=== PATIENT | female | born 1995 | race Hispanic/Latino ===

== ENCOUNTER 2017-05-04 01:38 | Emergency (ER) | payer OTHER ==
[2017-05-04 02:25] VITALS: BP 135/54; PULSE 86; RESP 18; TEMP 98; O2SAT 100
--- NOTE | 2017-05-04 02:51 | ED PDOC ---
Lower Extremity Pain/Injury Time Seen by Provider: 05/04/17 02:21 Chief Complaint (Nursing): Lower Extremity Problem/Injury Chief Complaint (Provider): Lower Extremity Problem/Injury History Per: Patient History/Exam Limitations: no limitations Onset/Duration Of Symptoms: Days (x1) Current Symptoms Are (Timing): Still Present Additional Complaint(s): 21 year old female who presents to the emergency department with a complaint of left foot, 2nd digit pain associated with swelling status post stubbing toe against rock in [place] earlier today. Patient stated [place] after hitting toe. PMD: none provided Past Medical History Reviewed: Historical Data, Nursing Documentation, Vital Signs Vital Signs: Last Vital Signs Temp 98.0 F 05/04/17 02:00 Pulse 86 05/04/17 02:00 Resp 18 05/04/17 02:00 BP 135/54 L 05/04/17 02:00 Pulse Ox 100 05/04/17 02:00 - Family History Family History: States: Unknown Family Hx - Home Medications Home Medications: Ambulatory Orders Medication Instructions Recorded Cephalexin [cephalexin] 500 mg PO QID #7 cap 05/04/17 - Allergies Allergies/Adverse Reactions: Allergies Allergy/AdvReac Type Severity Reaction Status Date / Time No Known Allergies Allergy Verified 05/04/17 02:22 Review of Systems ROS Statement: Except As Marked, All Systems Reviewed And Found Negative Musculoskeletal: Positive for: Foot Pain (left foot, 2nd digit with swelling) Physical Exam - Reviewed Nursing Documentation Reviewed: Yes Vital Signs Reviewed: Yes - Physical Exam Appears: Positive for: Well, Non-toxic, No Acute Distress Extremity: Positive for: Normal ROM (left foot digits), Tenderness (left foot, 2nd digit), Deformity (left foot, 2nd digit skin abrasion ), Swelling (left foot , 2nd digit), Other (slightly erythematous left foot, 2nd digit) Neurologic/Psych: Positive for: Alert, Oriented - ECG O2 Sat by Pulse Oximetry: 100 (RA) Pulse Ox Interpretation: Normal Medical Decision Making Medical Decision Making: Initial Impression: Toe fracture Initial Plan: * Motrin 600mg PO * Xray foot (left 2nd digit) Time: 0346 --Xray foot FINDINGS: Bones/joints: No acute fractures identified. No dislocation. Soft tissues: Normal. No radiopaque foreign body. IMPRESSION: No acute fractures identified. Toe cleaned by nurse. ABx given but advised patient not to fill prescription for two days and watch toe for spreading erythema, and if so to fill prescription. Return precautions given. Scribe Attestation: Documented by Yokasta Bazzi, acting as a scribe for Sebastien Miller MD. Provider Scribe Attestation: All medical record entries made by the Scribe were at my direction and personally dictated by me. I have reviewed the chart and agree that the record accurately reflects my personal performance of the history, physical exam, medical decision making, and the department course for this patient. I have also personally directed, reviewed, and agree with the discharge instructions and disposition. Disposition - Clinical Impression Clinical Impression: Toe injury - Disposition Referrals: Podiatry Clinic [Outside] Disposition Time: 03:45 Condition: STABLE Additional Instructions: Observe toe for 48 hours. If the redness and swelling improve on its own, do not fill antibiotics. Otherwise if redness spreads, fill the prescription. Prescriptions: Cephalexin [cephalexin] 500 mg PO QID #7 cap Instructions: Foot Contusion (ED) Forms: [facility] ([facility])
--- NOTE | 2017-05-04 08:23 | RAD ---
PROCEDURE: Radiographs of the left 2nd digit. TECHNIQUE:: AP radiograph of the left foot, with oblique and lateral view of the left 2nd digit. COMPARISON: None. FINDINGS: BONES: An approximate 2 mm radiodensity seen the soft tissues medial to the distal phalanx tuft this may represent a nail component, even nail khmer though other etiologies are possible. No fracture or dislocation is appreciated nevertheless. JOINTS: Normal. SOFT TISSUES: As above. OTHER FINDINGS: None. IMPRESSION: Questioned soft tissue density or artifact medial to the distal phalanx left 2nd digit, possibly related to the toenail. Clinically correlate further. No fracture dislocation identified or destructive bony lesion.
== END 2017-05-04 04:05 | disposition home or self-care (01) ==
LOC: H.ER 01:38
DX: S99.922A Unspecified injury of left foot, initial encounter (principal); W22.8XXA Striking against or struck by other objects, initial encounter; Y92.89 Other specified places as the place of occurrence of the external cause